=== PATIENT | male | born 1955 ===

== ENCOUNTER 2021-07-16 12:16 | Emergency (ER) | payer MEDICARE, BC, OTHER ==
[~2021-07-16] VITALS: Ht 188 cm; Wt 78.2 kg
[2021-07-16 13:00] VITALS: O2SAT 97
[2021-07-16] MEDS ORDERED: ATOR1TAB19 PO (13:15)
[2021-07-16 13:17] LABS: BASO % 0.3 % (0.0-1.0); EOS % 0.3 % (0.0-3.0); HEMATOCRIT 46.4 % (42.0-52.0); HEMOGLOBIN 16.1 g/dl (13.5-17.5); LYMPH # 0.9 10^3/uL (1.5-5.0); LYMPH % 21.9 % (24.0-44.0); MEAN CORPUSCULAR HEMOGLOBIN 30.9 pg (27.0-33.0); MEAN CORPUSCULAR HGB CONC 34.7 g/dl (32.0-36.5); MEAN CORPUSCULAR VOLUME 89.1 fl (80.0-96.0); MONO # 0.3 10^3/uL (0.0-0.8); MONO % 7.1 % (2.0-8.0); NEUTROPHILS # 2.8 10^3/uL (1.5-8.5); NEUTROPHILS % 70.1 % (36.0-66.0); PLATELET COUNT, AUTOMATED 119 10^3/uL (150-450); RED BLOOD COUNT 5.21 10^6/uL (4.30-6.10)
[2021-07-16] MEDS ORDERED: BACITRACIN OINTMENT 30GM TUBE TOP STA (13:19)
--- NOTE | 2021-07-16 14:16 | REP ---
INDICATION: COVID pos.. COMPARISON: None. TECHNIQUE: Upright AP chest image was obtained. FINDINGS: The lungs are clear. The heart borders mediastinum and pulmonary vascular pattern are normal. The upper abdominal bowel gas pattern is normal. There are no acute bony abnormalities of the chest. IMPRESSION: No evidence of acute cardiopulmonary pathology. <Electronically signed by Aquilino Jeter > 07/16/21 0449
[2021-07-16 14:45] VITALS: BP 164/88
[2021-07-16] MEDS ORDERED: PROAAER10 INH (15:13)
[2021-07-16] MEDS ORDERED: TESS100C PO (15:13)
== END 2021-07-16 14:58 | disposition home or self-care (01) ==
LOC: M ED 12:16
DX: U07.1 COVID-19 (principal); E78.5 Hyperlipidemia, unspecified; Z85.828 Personal history of other malignant neoplasm of skin
CPT/HCPCS: 36415; 71045; 80047; 85025; 99284; M0243

== ENCOUNTER 2021-07-16 15:55 | Outpatient (CLI) | payer MEDICARE, BC, OTHER ==
[~2021-07-16] VITALS: Ht 188 cm; Wt 78.2 kg
[2021-07-16 15:15] VITALS: BP 173/83
[2021-07-16 15:20] VITALS: BP 173/83
[2021-07-16 15:49] VITALS: BP 172/76
[~2021-07-16 15:55] MED LIST: ALBUTEROL 90 MCG/ACT 8GM HFA INHALER INH PRN; ALBUTEROL SULFATE 2.5 MG/0.5 ML INH NEB SOLN INH PRN; ATOR1TAB19 PO; EPINEPHrine INJ 1 MG/ML 1ML AMP IM PRN; PROAAER10 INH; TESS100C PO; diphenhydrAMINE 50MG/ML VIAL (J1200) IV PRN; methylPREDNISolone 125MG 2ML VIAL IV PRN
[2021-07-16] MEDS ORDERED: **hydrALAZINE** 10 MG TAB PO ONE (16:00)
[2021-07-16] MEDS ORDERED: CASIRIVIMAB/IMDEVIMAB 1,200 MG in NS 250 ML IV ONE (16:00)
[2021-07-16 16:19] VITALS: BP 173/83
[2021-07-16 16:40] VITALS: BP 165/76
[2021-07-16 17:55] VITALS: BP 135/74
[2021-07-16] MEDS ORDERED: ACETAMINOPHEN 500 MG TAB PO ONE (19:00)
== END 2021-07-16 18:46 | disposition home or self-care (01) ==
LOC: M OPCLI4PR 15:55 → M 4MAIN 15:55 → M OPCLI4PR 18:46
PROVIDERS: ATTEND Emergency Medicine
DX: U07.1 COVID-19 (principal)